=== PATIENT | female | born 1950 | race American Indian/Alaskan Native ===

== ENCOUNTER 2017-08-01 14:10 | Observation (INO) | payer MEDICARE ==
[2017-08-01 15:40] LABS: Hematocrit 34.3 % (30.3-42.9); Hemoglobin 11.5 gm/dl (10.1-14.3); Mean Corpuscular HGB Conc 34 % (30-34); Mean Corpuscular Hemoglobin 31 pg (28-32); Mean Corpuscular Volume 93 fl (79-97); Platelet Count 213 K/mm3 (140-440); Red Blood Count 3.67 M/mm3 (3.65-5.03); Red Cell Distribution Width 14.9 % (13.2-15.2)
[2017-08-01 15:55] LABS: INR 0.88 (0.87-1.13)
[2017-08-01 15:56] LABS: Partial Thromboplastin Time 29.5 Sec. (24.2-36.6)
[2017-08-01 16:01] LABS: BUN/Creatinine Ratio 13; Blood Urea Nitrogen 5 mg/dL (7-17); Hemolysis Index 13
[2017-08-01 16:32] LABS: Band Neutrophils # (Manual) 0.1 K/mm3; Basophils % (Manual) 0 % (0.0-1.8); Total Cells Counted 100
[2017-08-01 16:33] LABS: Ovalocytes 2+; Poikilocytosis Few
--- NOTE | 2017-08-01 16:53 | Cat Scan Report ---
FINAL REPORT EXAM: CT HEAD/BRAIN WO CON HISTORY: neuro deficits < 6hrs or sx present upon awakening TECHNIQUE: Standard unenhanced CT of the head at 5.0 millimeter axial increments. PRIORS: None. FINDINGS: The ventricular system is normal in size and configuration. There is no evidence for parenchymal volume loss. There is no evidence for mass lesion, mass effect, midline shift, acute intracranial hemorrhage, or acute ischemia/ infarction. No evidence for acute skull fracture is seen. No abnormality in the overlying scalp soft tissues is seen. Visualized paranasal sinuses are clear. IMPRESSION: Negative CT of the head. No acute intracranial process noted.
[2017-08-02] MEDS ORDERED: CATAPRES PO ONE ×2 (02:41→03:43)
[2017-08-02] MEDS ORDERED: BABY ASPIRIN PO ONE (02:41)
[2017-08-02] MEDS ORDERED: SUBLIMAZE IV ONE (02:41)
--- NOTE | 2017-08-02 02:47 | Emergency Department Report ---
HPI - General Chief Complaint: Neuro Symptoms/Deficit Time Seen by Provider: 08/02/17 02:16 - HPI HPI: The patient is a 66-year-old female with a history of multiple myeloma, currently on chemotherapy, and whom presents for evaluation of chest pain and paresthesias. The patient reports left-sided chest pain for the past one day, pressure-like and tightness in quality, moderate in severity, constant since onset, and associated with right lateralizing paresthesias and tingling in the right arm and leg. She also has experienced some on and off tingling and pulsating in the the head. The patient denies fever, trauma to the head, neck, chest, neck pain or stiffness, dyspnea, syncope, hemoptysis, unilateral leg swelling, recent immobilization, history of DVT or PE. ED Past Medical Hx - Past Medical History Additional medical history: multiple myloma - Social History Smoking Status: Never Smoker Substance Use Type: None - Medications Home Medications: Home Medications Medication Instructions Recorded Confirmed Last Taken Type Acyclovir [Zovirax] 400 mg PO BID 08/02/17 08/02/17 Unknown History LORazepam [Ativan] 1 mg PO Q6HR PRN 08/02/17 08/02/17 Unknown History Methocarbamol [Robaxin TAB] 500 mg PO BID 08/02/17 08/02/17 Unknown History Morphine [Morphine TAB] 15 mg PO BID 08/02/17 08/02/17 Unknown History Morphine [Morphine TAB] 30 mg PO Q12HR 08/02/17 08/02/17 Unknown History Pomalidomide [Pomalyst] 2 mg PO QDAY 08/02/17 08/02/17 Unknown History oxyCODONE [Roxicodone] 10 mg PO Q6HR 08/02/17 08/02/17 Unknown History ED Review of Systems ROS: Stated complaint: RIB AND RIGHT SIDED PAIN Other details as noted in HPI Constitutional: denies: fever ENT: denies: throat or neck pain Respiratory: denies: cough, shortness of breath Cardiovascular: reports: chest pain Endocrine: denies unexplained weight loss or gain Gastrointestinal: denies: abdominal pain, nausea Genitourinary: denies: dysuria Musculoskeletal: denies: leg swelling Skin: denies: rash Neurological: reports: headache and paresthesia Hematological/Lymphatic: denies: easy bleeding or easy bruising Psych: denies sadness or hopelessness Physical Exam - Physical Exam Vital Signs: Vital Signs 08/01/17 08/01/17 08/02/17 14:47 21:59 00:22 Temperature 98.3 F 98.0 F 98.3 F Pulse Rate 88 71 69 Respiratory 18 18 15 Rate Blood Pressure 199/78 180/81 Blood Pressure 177/73 [Left] O2 Sat by Pulse 99 100 Oximetry 08/02/17 08/02/17 01:00 02:01 Temperature Pulse Rate 67 Respiratory 21 22 Rate Blood Pressure 163/60 169/64 Blood Pressure [Left] O2 Sat by Pulse 98 98 Oximetry Physical Exam: General: well-nourished, well-developed, no acute distress Head: Normocephalic, atraumatic Eyes: normal sclera, PERRL, EOM intact ENT: Mucous membranes are pink and moist Neck: trachea midline, neck supple, No neck stiffness, no cervical adenopathy Respiratory: Breath sounds equal bilaterally, no wheezing, rales, or rhonchi Cardio: S1 and S2 present, no murmurs, rubs, gallops, capillary refill is brisk Abdomen: Normoactive bowel sounds, soft abdomen, no rigidity, no guarding or rebound tenderness Chest WALL/Back: No tenderness to palpation of the chest wall, no CVA tenderness with percussion Musc: No pitting edema Skin: No rash Neuro: alert oriented x4, normal cognition, speech normal no facial drooping, no uvula or tongue deviation on protrusion, no deficit with rotation of neck or shoulder shrug, no obvious gross motor deficit in the upper or lower extremities with flexion or extension at the shoulder, elbow, wrist, hip, knee, or ankle bilaterally, no obvious gross sensation deficit to crude touch or 2 pt discrimination, 2+ symmetric reflexes on DTR testing, no coordination deficit with [id number] or stgu-wa-[id number] testing, Babinski downgoing, Psych: Normal affect ED Course Vital Signs 08/01/17 08/01/17 08/02/17 14:47 21:59 00:22 Temperature 98.3 F 98.0 F 98.3 F Pulse Rate 88 71 69 Respiratory 18 18 15 Rate Blood Pressure 199/78 180/81 Blood Pressure 177/73 [Left] O2 Sat by Pulse 99 100 Oximetry 08/02/17 08/02/17 01:00 02:01 Temperature Pulse Rate 67 Respiratory 21 22 Rate Blood Pressure 163/60 169/64 Blood Pressure [Left] O2 Sat by Pulse 98 98 Oximetry ED Medical Decision Making - Lab Data Result diagrams: 08/01/17 15:16 08/01/17 15:16 - Medical Decision Making The patient was seen and examined by myself. The patient is placed on a cardiac tech and continuous pulse ox. On initial evaluation, the patient was found to be in no distress. EKG was negative for findings suggestive of acute cardiac infarct. The patient is given an aspirin and a nitroglycerin tablet. Labs and imaging are obtained. The patient is given pain medicines for treatment of her chest pain. The patient was given a tablet of clonidine for treatment of her elevated blood pressure. Chest x-ray is negative for pneumothorax, focal consolidation, pulmonary vascular congestion, pleural effusion, or other obvious acute cardiopulmonary disease process. Lab results were non-revealing including negative troponin, WBC, hemoglobin, hematocrit, electrolytes, renal function. CT scan the head is negative for acute intracranial disease process. The patient is given a aspirin for treatment of suspected TIA. The patient was reevaluated and reported that their symptoms were improved. As the patient has chest pain and risk factors for development of acute coronary event, the patient will be admitted for close cardiopulmonary monitoring, serial troponins, and evaluation by cardiology. Dr. Matthews, the physician on-call for the hospitalist service was contacted. She agreed to authorize admission of the patient for the hospitalist service, and for placement of bridging orders. Critical care attestation.: If time is entered above; I have spent that time in minutes in the direct care of this critically ill patient, excluding procedure time. ED Disposition Clinical Impression: Acute chest pain, Hypertensive urgency TIA (transient ischemic attack) Qualifiers: Transient cerebral ischemia type: unspecified Qualified Code(s): G45.9 - Transient cerebral ischemic attack, unspecified Disposition: OP ADMIT IP TO THIS HOSP Is pt being admited?: Yes Does the pt Need Aspirin: Yes Condition: Fair Instructions: Chest Pain (ED) Referrals: LEELEE ASHLEY [Other] - 3-5 Days Time of Disposition: 02:46 - Assessment Assessment Interval: Baseline - Level of Consciousness 1a. Level of Consciousness: alert - LOC Questions 1b. LOC Questions: answers correctly - LOC Command 1c. LOC Commands: performs tasks correctly - Best Gaze 2. Best Gaze: normal - Visual 3. Visual: no visual loss - Facial Palsy 4. Facial Palsy: normal symmetrical movement - Motor Arm 5b. Motor Arm Right: no drift 5a. Motor Arm Left: no drift - Motor Leg 6a. Motor Leg Left: no drift 6b. Motor Leg Right: no drift - Limb Ataxia 7. Limb Ataxia: absent - Sensory 8. Sensory: normal - Best Language 9. Best Language: no aphasia - Dysarthria 10. Dysarthria: normal - Extinction and Inattention 11. Extinction/Inattention: no abnormality - Scoring Total Score: 0 Stroke Severity: No Stroke Symptoms
[2017-08-02] MEDS ORDERED: PROVENTIL IH PRN (05:29)
[2017-08-02] MEDS ORDERED: PHENERGAN PR PRN (05:29)
[2017-08-02] MEDS ORDERED: MILK OF MAGNESIA PO PRN (05:29)
[2017-08-02] MEDS ORDERED: REGLAN PO PRN (05:29)
[2017-08-02] MEDS ORDERED: DULCOLAX PR PRN (05:29)
[2017-08-02] MEDS ORDERED: SODIUM CHLORIDE FLUSH SYRINGE 10 ML IV PRN (05:29)
[2017-08-02] MEDS ORDERED: TYLENOL PO PRN ×2 (05:29)
[2017-08-02] MEDS ORDERED: SODIUM CHLORIDE FLUSH SYRINGE 10 ML INJ PRN (05:29)
[2017-08-02] MEDS ORDERED: ZOFRAN IV PRN (05:29)
[2017-08-02] MEDS ORDERED: ATIVAN PO PRN (05:33)
--- NOTE | 2017-08-02 05:50 | History and Physical Report ---
History of Present Illness Date of examination: 08/02/17 Date of admission: 08/02/17 02:48 Chief complaint: Throbbing headache with paresthesia History of present illness: Patient is a 66 year old female with history of multiple myeloma, currently on chemotherapy pomadilomade, presenting to the ER with complaint of Throbbing headache rated a 5/10 in intensity with no associated blurry vision and has been going on for about 2 weeks on and off. In the last 24 hours began to experience chest discomfort left sided and pressure like, also with Parasthesia to her right arm and leg, she spoke to her pharmacy who advised that she comes to the hospital. While at home a few weeks ago she reported that her blood pressure was 200 systolic. On arrival she noted an exertional dyspnea that was transient Past History Past Medical History: hypertension, other (multiple myeloma) Past Surgical History: No surgical history Social history: no significant social history Family history: no significant family history Medications and Allergies Allergies Allergy/AdvReac Type Severity Reaction Status Date / Time No Known Allergies Allergy Unverified 08/01/17 14:55 Home Medications Medication Instructions Recorded Confirmed Last Taken Type Acyclovir [Zovirax] 400 mg PO BID 08/02/17 08/02/17 Unknown History LORazepam [Ativan] 1 mg PO Q6HR PRN 08/02/17 08/02/17 Unknown History Methocarbamol [Robaxin TAB] 500 mg PO BID 08/02/17 08/02/17 Unknown History Morphine [Morphine TAB] 15 mg PO BID 08/02/17 08/02/17 Unknown History Morphine [Morphine TAB] 30 mg PO Q12HR 08/02/17 08/02/17 Unknown History Pomalidomide [Pomalyst] 2 mg PO QDAY 08/02/17 08/02/17 Unknown History oxyCODONE [Roxicodone] 10 mg PO Q6HR 08/02/17 08/02/17 Unknown History Active Meds: Active Medications Acetaminophen (Tylenol) 650 mg PO Q4H PRN PRN Reason: Pain, Mild (1-3) Albuterol (Proventil) 2.5 mg IH Q4HRT PRN PRN Reason: Shortness Of Breath Aspirin (Ecotrin) 325 mg PO QDAY REJI Atorvastatin Calcium (Lipitor) 40 mg PO QHS REJI Bisacodyl (Dulcolax) 10 mg MD QDAY PRN PRN Reason: Constipation Famotidine (Pepcid) 10 mg PO BID REJI Lorazepam (Ativan) 1 mg PO Q6HR PRN PRN Reason: Nausea Magnesium Hydroxide (Milk Of Magnesia) 30 ml PO Q4H PRN PRN Reason: Constipation Methocarbamol (Robaxin) 500 mg PO BID REJI Metoclopramide HCl (Reglan) 10 mg PO Q6H PRN PRN Reason: Nausea And Vomiting Miscellaneous Medication (Acyclovir [Zovirax]) 400 mg PO BID REJI Miscellaneous Medication (Pomalidomide [Pomalyst]) 2 mg PO QDAY REJI Miscellaneous Medication (Morphine [Morphine Tab]) 30 mg PO Q12HR REJI Morphine Sulfate (Morphine) 15 mg PO BID REJI Ondansetron HCl (Zofran) 4 mg IV Q8H PRN PRN Reason: Nausea And Vomiting Oxycodone HCl (Roxicodone) 10 mg PO Q6HR REJI Promethazine HCl (Phenergan) 25 mg MD Q6H PRN PRN Reason: Nausea And Vomiting Sodium Chloride (Sodium Chloride Flush Syringe 10 Ml) 10 ml IV BID REJI Sodium Chloride (Sodium Chloride Flush Syringe 10 Ml) 10 ml IV PRN PRN PRN Reason: LINE FLUSH Review of Systems Constitutional: weakness, malaise Ears, nose, mouth and throat: headache Neurological: weakness, parathesias Exam - Physical Exam Narrative exam: VITAL SIGNS: Reviewed. GENERAL: The patient appeared well nourished and normally developed. Vital signs as documented. HEAD: No signs of head trauma. EYES: Pupils are equal. Extraocular motions intact. EARS: Hearing grossly intact. MOUTH: Oropharynx is normal. NECK: No adenopathy, no JVD. CHEST: Chest with clear breath sounds bilaterally. No wheezes, rales, or rhonchi. CARDIAC: Regular rate and rhythm. S1 and S2, without murmurs, gallops, or rubs. VASCULAR: No Edema. Peripheral pulses normal and equal in all extremities. ABDOMEN: Soft, without detectable tenderness. No sign of distention. No rebound or guarding, and no masses palpated. Bowel Sounds normal. MUSCULOSKELETAL: Good range of motion of all major joints. Extremities without clubbing, cyanosis or edema. NEUROLOGIC EXAM: Alert and oriented x 3. No focal sensory or strength deficits. Speech normal. Follows commands. PSYCHIATRIC: Mood normal. SKIN: No rash or lesions. - Constitutional Vitals: Temp Pulse Resp BP Pulse Ox 98.3 F 65 17 155/70 99 08/02/17 00:22 08/02/17 04:01 08/02/17 04:01 08/02/17 04:01 08/02/17 04:01 Results - Labs CBC & Chem 7: 08/02/17 08:09 08/02/17 08:09 Labs: Laboratory Last Values WBC 4.2 K/mm3 (4.5-11.0) L 08/01/17 15:16 RBC 3.67 M/mm3 (3.65-5.03) 08/01/17 15:16 Hgb 11.5 gm/dl (10.1-14.3) 08/01/17 15:16 Hct 34.3 % (30.3-42.9) 08/01/17 15:16 MCV 93 fl (79-97) 08/01/17 15:16 MCH 31 pg (28-32) 08/01/17 15:16 MCHC 34 % (30-34) 08/01/17 15:16 RDW 14.9 % (13.2-15.2) 08/01/17 15:16 Plt Count 213 K/mm3 (140-440) 08/01/17 15:16 Add Manual Diff Complete 08/01/17 15:16 Total Counted 100 08/01/17 15:16 Seg Neutrophils % Executive Candidate Developer 08/01/17 15:16 Seg Neuts % (Manual) 30.0 % (40.0-70.0) L 08/01/17 15:16 Band Neutrophils % 3.0 % 08/01/17 15:16 Lymphocytes % (Manual) 51.0 % (13.4-35.0) H 08/01/17 15:16 Reactive Lymphs % (Man) 0 % 08/01/17 15:16 Monocytes % (Manual) 13.0 % (0.0-7.3) H 08/01/17 15:16 Eosinophils % (Manual) 3.0 % (0.0-4.3) 08/01/17 15:16 Basophils % (Manual) 0 % (0.0-1.8) 08/01/17 15:16 Metamyelocytes % 0 % 08/01/17 15:16 Myelocytes % 0 % 08/01/17 15:16 Promyelocytes % 0 % 08/01/17 15:16 Blast Cells % 0 % 08/01/17 15:16 Nucleated RBC % Not Reportable 08/01/17 15:16 Seg Neutrophils # Man 1.3 K/mm3 (1.8-7.7) L 08/01/17 15:16 Band Neutrophils # 0.1 K/mm3 08/01/17 15:16 Lymphocytes # (Manual) 2.1 K/mm3 (1.2-5.4) 08/01/17 15:16 Abs React Lymphs (Man) 0.0 K/mm3 08/01/17 15:16 Monocytes # (Manual) 0.5 K/mm3 (0.0-0.8) 08/01/17 15:16 Eosinophils # (Manual) 0.1 K/mm3 (0.0-0.4) 08/01/17 15:16 Basophils # (Manual) 0.0 K/mm3 (0.0-0.1) 08/01/17 15:16 Metamyelocytes # 0.0 K/mm3 08/01/17 15:16 Myelocytes # 0.0 K/mm3 08/01/17 15:16 Promyelocytes # 0.0 K/mm3 08/01/17 15:16 Blast Cells # 0.0 K/mm3 08/01/17 15:16 WBC Morphology Not Reportable 08/01/17 15:16 Hypersegmented Neuts Not Reportable 08/01/17 15:16 Hyposegmented Neuts Not Reportable 08/01/17 15:16 Hypogranular Neuts Not Reportable 08/01/17 15:16 Smudge Cells Not Reportable 08/01/17 15:16 Toxic Granulation Not Reportable 08/01/17 15:16 Toxic Vacuolation Not Reportable 08/01/17 15:16 Dohle Bodies Not Reportable 08/01/17 15:16 Pelger-Huet Anomaly Not Reportable 08/01/17 15:16 Jenny Rods Not Reportable 08/01/17 15:16 Platelet Estimate Appears normal 08/01/17 15:16 Clumped Platelets Not Reportable 08/01/17 15:16 Plt Clumps, EDTA Not Reportable 08/01/17 15:16 Large Platelets Not Reportable 08/01/17 15:16 Giant Platelets Not Reportable 08/01/17 15:16 Platelet Satelliting Not Reportable 08/01/17 15:16 Plt Morphology Comment Not Reportable 08/01/17 15:16 RBC Morphology Not Reportable 08/01/17 15:16 Dimorphic RBCs Not Reportable 08/01/17 15:16 Polychromasia Not Reportable 08/01/17 15:16 Hypochromasia Not Reportable 08/01/17 15:16 Poikilocytosis Few 08/01/17 15:16 Anisocytosis Not Reportable 08/01/17 15:16 Microcytosis Not Reportable 08/01/17 15:16 Macrocytosis Not Reportable 08/01/17 15:16 Spherocytes Not Reportable 08/01/17 15:16 Pappenheimer Bodies Not Reportable 08/01/17 15:16 Sickle Cells Not Reportable 08/01/17 15:16 Target Cells Not Reportable 08/01/17 15:16 Tear Drop Cells Not Reportable 08/01/17 15:16 Ovalocytes 2+ 08/01/17 15:16 Helmet Cells Not Reportable 08/01/17 15:16 Salas-Fulshear Bodies Not Reportable 08/01/17 15:16 [place] Rings Not Reportable 08/01/17 15:16 [place] Cells Not Reportable 08/01/17 15:16 Bite Cells Not Reportable 08/01/17 15:16 Crenated Cell Not Reportable 08/01/17 15:16 Elliptocytes Not Reportable 08/01/17 15:16 Acanthocytes (Spur) Not Reportable 08/01/17 15:16 Rouleaux Not Reportable 08/01/17 15:16 Hemoglobin C Crystals Not Reportable 08/01/17 15:16 Schistocytes Not Reportable 08/01/17 15:16 Malaria parasites Not Reportable 08/01/17 15:16 Wyatt Bodies Not Reportable 08/01/17 15:16 Hem Pathologist Commnt No 08/01/17 15:16 PT 12.4 Sec. (12.2-14.9) 08/01/17 15:16 INR 0.88 (0.87-1.13) 08/01/17 15:16 APTT 29.5 Sec. (24.2-36.6) 08/01/17 15:16 Thrombin Time > 120.0 Sec. (15.1-19.6) H 08/01/17 15:16 Sodium 141 mmol/L (137-145) 08/01/17 15:16 Potassium 3.6 mmol/L (3.6-5.0) 08/01/17 15:16 Chloride 102.7 mmol/L (98-107) 08/01/17 15:16 Carbon Dioxide 26 mmol/L (22-30) 08/01/17 15:16 Anion Gap 16 mmol/L 08/01/17 15:16 BUN 5 mg/dL (7-17) L 08/01/17 15:16 Creatinine 0.4 mg/dL (0.7-1.2) L 08/01/17 15:16 Estimated GFR > 60 ml/min 08/01/17 15:16 BUN/Creatinine Ratio 13 % 08/01/17 15:16 Glucose 83 mg/dL (65-100) 08/01/17 15:16 Calcium 9.0 mg/dL (8.4-10.2) 08/01/17 15:16 Troponin T < 0.010 ng/mL (0.00-0.029) 08/01/17 15:16 - Imaging and Cardiology CT Scan - head: image reviewed (negative) Assessment and Plan Assessment and plan: Patient is a 66 year old female with history of multiple myeloma, currently on chemotherapy pomadilomade, presenting to the ER with complaint of Throbbing headache rated a 5/10 in intensity with no associated blurry vision and has been going on for about 2 weeks on and off. In the last 24 hours began to experience chest discomfort left sided and pressure like, also with Parasthesia to her right arm and leg, she spoke to her pharmacy who advised that she comes to the hospital. While at home a few weeks ago she reported that her blood pressure was 200 systolic. On arrival she noted an exertional dyspnea that was transient HTN urgency-New diagnosis TIA Headache, likely secondary to HTN Multiple Myeloma Atypical chest pain Exertional dyspnea Chronic pain syndrome Plan * Admit to Tele * Chest pain protocol with [facility] * MRI/MRA brain and head respectively, * Carotid ultrasound * Chest xray * Resume home medications * cardiac enzymes, stress test * ASA, STATIN * DVT/GI prophy * Plan discussed with the patient Advance Directives: Yes Plan of care discussed with patient/family: Yes
[2017-08-02] MEDS ORDERED: MORPHINE PO PRN ×2 (05:54)
[2017-08-02] MEDS ORDERED: ROXICODONE PO SCH (06:00)
[2017-08-02 08:25] LABS: Hematocrit 31.1 % (30.3-42.9); Hemoglobin 10.6 gm/dl (10.1-14.3); Mean Corpuscular HGB Conc 34 % (30-34); Mean Corpuscular Hemoglobin 32 pg (28-32); Mean Corpuscular Volume 94 fl (79-97); Platelet Count 197 K/mm3 (140-440); Red Blood Count 3.32 M/mm3 (3.65-5.03); Red Cell Distribution Width 14.9 % (13.2-15.2)
[2017-08-02 09:00] LABS: BUN/Creatinine Ratio 17; Blood Urea Nitrogen 5 mg/dL (7-17); Calcium 8.4 mg/dL (8.4-10.2); Chol/HDL Ratio 2.64 %; HDL Cholesterol 53 mg/dL (40-59); Hemolysis Index 66; LDL Cholesterol,Direct 86 mg/dL (50-130)
[2017-08-02 09:27] LABS: Anisocytosis 1+; Basophils % (Manual) 0 % (0.0-1.8); Ovalocytes 1+; Poikilocytosis 1+; Tear Drop Cells Rare; Total Cells Counted 100
[2017-08-02] MEDS ORDERED: POMALIDOMIDE 2 MG PO SCH (10:00)
[2017-08-02] MEDS ORDERED: MORPHINE PO SCH (10:00)
[2017-08-02] MEDS: DIOVAN PO SCH (10:04)
[2017-08-02] MEDS: MS CONTIN ER PO SCH ×2 (10:05→21:23)
[2017-08-02] MEDS: HCTZ PO SCH (10:05)
[2017-08-02] MEDS ORDERED: LEXISCAN IV ONE ×2 (10:27→10:32)
[2017-08-02] MEDS: ROBAXIN PO SCH ×2 (15:32→21:23)
[2017-08-02] MEDS: ZOVIRAX PO SCH ×2 (15:32→21:25)
[2017-08-02] MEDS: PEPCID PO SCH ×2 (15:32→21:24)
--- NOTE | 2017-08-02 15:49 | Magnetic Resonance Report ---
MRI BRAIN WITHOUT CONTRAST: 08/02/17 02:48:00 CLINICAL: CVA. TECHNIQUE: Axial diffusion, T1, T2, gradient echo T2*, coronal and axial FLAIR and sagittal T1 sequences on a 1.5 Jillian magnet. FINDINGS: Normal ventricles and sulci. No restricted diffusion. A single tiny left frontal parietal white matter focal hyperintensity on FLAIR and T2. No other abnormal signal. The No mass or mass effect. No hemorrhage, edema or extra-axial collection. Normal pituitary and optic chiasm. The brainstem and cerebellum are normal. Intact vascular flow voids. Normal sinuses. The orbits, and soft tissues are normal. Normal calvarium and skull base. IMPRESSION: Negative study. No evidence of acute/subacute infarct or hemorrhage.
--- NOTE | 2017-08-02 15:50 | Magnetic Resonance Report ---
MRA HEAD WITHOUT CONTRAST: 08/02/17 02:48:00 CLINICAL: CVA. TECHNIQUE: Axial 3-D [id number] MR angiography of the [place] with review of axial source images. FINDINGS: Intact [place] with no aneurysm, stenosis or occlusion. Symmetric blood flow in the anterior, middle and posterior cerebral arteries. Normal basilar and vertebral arteries. IMPRESSION: Normal study.
--- NOTE | 2017-08-02 20:48 | Treadmill Report ---
THALLIUM STRESS TEST LEFT VENTRICLE: Left ventricular chamber size is within normal limits. Perfusion study demonstrates homogeneous uptake of the tracer in all segments, no significant perfusion defects identified. Gated analysis demonstrates normal left ventricular systolic function, ejection fraction 67%. CONCLUSION: Normal myocardial perfusion study. JOB# [id number] CA/NTS
[2017-08-02] MEDS: SODIUM CHLORIDE FLUSH SYRINGE 10 ML IV SCH (21:25)
--- NOTE | 2017-08-02 22:02 | XRay Report ---
FINAL REPORT PROCEDURE: XR CHEST 1V AP TECHNIQUE: Chest radiograph anteroposterior view. CPT 15418 HISTORY: SHORTNESS OF BREATH COMPARISON: No prior studies are available for comparison. FINDINGS: Heart: Normal. Mediastinum/Vessels: Normal. Lungs/Pleural space: Normal. Bony thorax: No acute osseous abnormality. Life support devices: None. IMPRESSION: No acute cardiopulmonary abnormality.
[2017-08-03] MEDS ORDERED: POMALIDOMIDE 2 MG PO SCH (02:00)
[2017-08-03 08:01] VITALS: BP 121/66
[2017-08-03] MEDS ORDERED: ECOTRIN PO SCH (10:00)
[2017-08-03] MEDS: MS CONTIN ER PO SCH (10:27)
[2017-08-03] MEDS: ZOVIRAX PO SCH (10:27)
[2017-08-03] MEDS: PEPCID PO SCH (10:27)
[2017-08-03] MEDS: HCTZ PO SCH (10:27)
[2017-08-03] MEDS: DIOVAN PO SCH (10:27)
[2017-08-03] MEDS: SODIUM CHLORIDE FLUSH SYRINGE 10 ML IV SCH ×2 (10:28→10:30)
[2017-08-03] MEDS: ROBAXIN PO SCH (10:38)
--- NOTE | 2017-08-03 11:06 | Discharge Summary ---
Providers - Providers Date of Admission: 08/02/17 02:48 Attending physician: AMARILIS ABDUL MD 08/02/17 Consult to Cardiac Rehabilitation [CONS] Routine Reason For Exam: Phase I 08/02/17 05:29 Occupational Therapy Evaluate and Treat [CONS] Routine Comment: Reason For Exam: Neuro deficits Physical Therapy Evaluation and Treat [CONS] Routine Comment: Reason For Exam: Neuro deficits Hospitalization Reason for admission: shortness of breath Condition: Stable Hospital course: Patient is a 66 year old female with history of multiple myeloma, currently on chemotherapy pomadilomade, presenting to the ER with complaint of Throbbing headache rated a 5/10 in intensity with no associated blurry vision and has been going on for about 2 weeks on and off. In the last 24 hours began to experience chest discomfort left sided and pressure like, also with Parasthesia to her right arm and leg, she spoke to her pharmacy who advised that she comes to the hospital. While at home a few weeks ago she reported that her blood pressure was 200 systolic. On arrival she noted an exertional dyspnea that was transient. Patient proceeded to have a stress test that was negative. Echo reviealed EF 60-65% and mild pulmonary HTN. I advised patient to have a pulmonary function test done as outpatient considering Chemotherapy. Her symptoms improved and no need for home o2 HTN urgency-New diagnosis TIA Headache, likely secondary to HTN Multiple Myeloma Atypical chest pain Exertional dyspnea Chronic pain syndrome pulmonary htn Disposition: DC-01 TO HOME OR SELFCARE Time spent for discharge: 35 MINS Core Measure Documentation - Palliative Care Palliative Care/ Comfort Measures: Not Applicable - Core Measures Any of the following diagnoses?: none - VTE Discharge Requirements Deep Vein Thrombosis/Pulmonary Embolism Present on Admission: No Exam - Physical Exam Narrative exam: VITAL SIGNS: Reviewed. GENERAL: The patient appeared well nourished and normally developed. Vital signs as documented. HEAD: No signs of head trauma. EYES: Pupils are equal. Extraocular motions intact. EARS: Hearing grossly intact. MOUTH: Oropharynx is normal. NECK: No adenopathy, no JVD. CHEST: Chest with clear breath sounds bilaterally. No wheezes, rales, or rhonchi. CARDIAC: Regular rate and rhythm. S1 and S2, without murmurs, gallops, or rubs. VASCULAR: No Edema. Peripheral pulses normal and equal in all extremities. ABDOMEN: Soft, without detectable tenderness. No sign of distention. No rebound or guarding, and no masses palpated. Bowel Sounds normal. MUSCULOSKELETAL: Good range of motion of all major joints. Extremities without clubbing, cyanosis or edema. NEUROLOGIC EXAM: Alert and oriented x 3. No focal sensory or strength deficits. Speech normal. Follows commands. PSYCHIATRIC: Mood normal. SKIN: No rash or lesions. - Constitutional Vitals: Temp Pulse Resp BP Pulse Ox 97.8 F 60 18 121/66 96 08/03/17 07:06 08/03/17 07:06 08/03/17 07:06 08/03/17 07:06 08/03/17 07:06 Plan Activity: advance as tolerated, fall precautions Diet: low fat Special Instructions: record daily weights, record daily BP diary Additional Instructions: follow with [facility] Follow up with: LEELEE ASHLEY [Other] - 3-5 Days Prescriptions: AtorvaSTATin [Lipitor] 40 mg PO QHS #30 tablet ALBUTEROL Inhaler [ProAir HFA Inhaler] 2 puff IH QID PRN #1 inhalation PRN Reason: Shortness Of Breath Famotidine [Pepcid] 10 mg PO BID #60 tablet Hydrochlorothiazide [HCTZ] 25 mg PO QDAY #30 tablet Promethazine [Phenergan SUPPOS] 25 mg SD Q6H PRN #14 supp.rect PRN Reason: Nausea And Vomiting Valsartan [Diovan] 160 mg PO DAILY #30 tablet
--- NOTE | 2017-08-10 15:12 | Vascular Lab Report ---
CAROTID DUPLEX STUDY: RIGHT PSVEDV CCA PROX:[id number] CCA DIST:[id number] ICA PROX:3611 ICA MID:4415 ICA DIST:4315 ECA: 67 VERT: 42 0 LEFT PSVEDV CCA PROX:8017 CCA DIST:7519 ICA PROX:3611 ICA MID:9430 ICA DIST:5815 ECA: 78 VERT: 18 0 REASON FOR EXAM: Stroke. COMMENTS ON THE RIGHT: Doppler frequency analysis is consistent with 16 to 49 percent diameter reduction of the internal carotid artery. A moderate amount of irregular surface plaque is seen. The common carotid artery is patent. The external carotid artery is patent. The vertebral artery has antegrade flow. The vertebral artery has preocclusive waveforms. COMMENTS ON THE LEFT: Doppler frequency analysis is consistent with 16 to 49 percent diameter reduction of the internal carotid artery. A moderate amount of irregular surface plaque is seen. The common carotid artery is patent. The external carotid artery is patent. The vertebral artery has antegrade flow. The vertebral artery is free occlusive waveforms. IMPRESSION: Less than 50% diameter reduction in the internal carotid arteries bilaterally. A moderate amount of irregular surface plaque is seen bilaterally. The vertebral arteries have preocclusive waveforms bilaterally. Consider further evaluation with CT angiography.
== END 2017-08-03 14:47 | disposition home or self-care (01) ==
LOC: ED 14:10 → INTOOBSV 08-02 02:48 → 4A 08-02 02:48
PROVIDERS: ADMIT Internal Medicine; ATTEND Internal Medicine
DX: G45.9 Transient cerebral ischemic attack, unspecified (principal); C90.00 Multiple myeloma not having achieved remission; I16.0 Hypertensive urgency; R07.89 Other chest pain; G89.4 Chronic pain syndrome; I10 Essential (primary) hypertension; R06.09 Other forms of dyspnea; Z79.899 Other long term (current) drug therapy
CPT/HCPCS: 36415; 70450; 70544; 70551; 71045; 78452; 80048; 80061; 84484; 85007; 85025; 85610; 85670; 85730; 93005; 93010; 93017; 93306; 93880; 96374; 96375; 97161; 99285; A9270; A9502; G8978; G8980; J2405; J2785; J3010; G0378